=== PATIENT | female | born 1955 | race Caucasian/White ===

== ENCOUNTER → 2024-03-12 06:28 | Day surgery (SDC) | payer BC, MEDICARE, SELFPAY ==
[2024-03-08 08:31] VITALS: BMI 24.4
--- NOTE | 2024-03-11 06:32 | HPS.HSE ---
Family Physician
-
Family Physician: Cielo Jimenes
Chief Complaint
-
NA
History of Present Illness
68�year�old�G3�P3�0�0�3�white�female�menopausal�since�age�49�who�has�had�several�years�of�constipation.�Within�the�last�month
she�had�an�episode�where�she�was�really�unable�to�correct�her�constipation�and�reached�out�to�her�family�physician�and�requested
further�evaluation.�The�onset�of�this�has�been�gradual,�she�did�not�have�any�pain�but�she�describes�discomfort�3�out�of�10.�His�CT�of
abdomen�and�pelvis�was�ordered,�this�study�reveals�Suboptimal�study�without�intravenous�contrast.�Lobulated�mass�immediately
adjacent�to�the�posterior�aspect�of�the�uterus�measuring�up�to�8.2�cm�which�may�represent�an�exophytic�fibroid.�A�mass�arising
from�one�of�the�ovaries�cannot�be�entirely�excluded.�Complete�characterization�with�contrast�enhanced�pelvic�MRI�is�recommended.
An�MRI�was�subsequently�ordered,�detailed�results�are�at�the�bottom�of�this�note.�In�summary�it�revealedThe�left�ovary�is inseparable�from�a�7.9�cm�heterogenous�mass�which�shows�T1�intermediate�signal�intensity�and�demonstrates�enhancement�less
than�the�myometrium.� Past�medical�history�significant�for�hyperlipidemia,�osteopenia,�loss�of�height Past�surgical�history�none Past�gynecologic�history,�patient�is�normally�seen�by�,�she�has�not�been�seen�for�the�last�3�to�4�years.
Family�history�significant�for�son�with�myocardial�infarction�at�age�36,�hence�patient�has�been�seeing�cardiology�on�a�regular�basis
but�her�workup�has�been�negative.�Maternal�grandmother�had�breast�cancer�and��of�it�at�65.�She�had�a�7�year�tran�with�this disease Patient�works�as�an�administrative�clinical medical assistant,�she�is�
Social�history�significant�for�tobacco�use�as�a�teenager�but�quit,�she�does�not�drink�alcohol�and�does�not�use�drugs�or�marijuana.
Social�History Former�Smoker. Social�use�of�alcohol. Denies�any�illicit�drug�use. Occupational�Status:�Current:�administrative�clinical medical assistant. Marital�Status:�Patient�is� Gynecological�History
Age�at�Menarche�13�years.�Age�at�menopause:�49�years.�Patient�reports�2�pregnancies.�Her�age�at�first�full�term��was�22 years. No�history�of�hormone�replacement�therapy. Patient�Reported�Level�of�Pain Pain:�no�pain.
Medical History
Past Medical History
Past Medical History: Reports None
Past Surgical History: Reports None
Social History
Tobacco: Non-smoker
Family History
Family History: Not pertinent
Allergies / Home Medications
Allergies reflects when Allergies were last updated in [facility].
Home Medications with original date entered in [facility]
Allergy/Medication List:
Calcium�500�500�mg�(as�calcium�carbonate�1,250 mg)�chewable�tablet 02/29/2024 0 1�p.o.�q.�day
rosuvastatin�20�mg�tablet 02/29/2024 0 1�p.o.�q.�day
Vitamin�D3�50�mcg�(2,000�unit)�tablet 02/29/2024 0 1�p.o.�q.�day
Review of Systems
-
A 12 point ROS was completed and negative except as noted: Yes
Physical Exam
Vital Signs
Pelvic�Examination: External�normal�labia,�urethra,�anus. Vagina:�Normal�mucosa.� Cervix:�normal�appearance,�no�discharge.�pap�done Uterus:�normal�size.
Plus�she�will�go�to�[place]�adnexa:�No�pelvic�mass.�There�is�a�palpable�7�to�8�cm�mass�in�the�posterior�cul�de�sac,�it�is�mobile�and is�not�fixed.�There�is�no�cul�de�sac�nodularity� RVE�see�above,�no�luminlaI�her�masses�or�nodularity
General:�Well�developed,�well�nourished�patient.�In�no�acute�distress.
Neck:�No�thyromegaly.�No�cervical�lymphadenopathy.
Lungs:�Clear�to�auscultation.�Good�air�movement�bilaterally.
Cardiac:�Regular�rate.�Regular�rhythm.�No�murmurs�appreciated.
Right�Breast:�No�masses�or�dimpling.�No�nipple�discharge. Left�Breast:�No�masses�or�dimpling.�No�nipple�discharge. Abdomen:�Abdomen�is�soft.�Non�tender�to�palpation.�Non�distended.
Extremities:�No�edema. Hematologic/Lymphatic:�No�palpable�lymphadenopathy. Musculoskeletal:�Normal�range�of�motion.�Strength�and�Tone�are�normal.
Skin:Non�jaundiced.�No�petechia.�No�purpura. Neurologic:�Speech�is�fluent.�Normal�gait�and�station.�Cranial�nerves�intact.
Physical Exam
General: Well Developed, Well Nourished and No Apparent Distress
Laboratory Results
-
Imaging�Results Narrative�&�Impression HISTORY:�68�years�old?�Female?�Soft�tissue�mass,�pelvis,�US/xray�nondiagnostic? TECHNIQUE:�MRI�of�PELVIS�was�performed�on�1.5�Malorie�MRI�using�multiple�pulse�sequences�in�sagittal,�coronal�and�axial�planes.
Contrast�(Dotarem):�13�ml.�Comparison:�CT�dated�02/23/2024. FINDINGS: UTERUS:�3.6�x�3.5�x�5.5�cm,�anteverted,�no�anatomic�variants.. ENDOMETRIUM:�6�mm�(normal�premenopausal�<16�mm?�postmenopausal�<5�mm�bleeding,�<11�mm�asymptomatic).
MYOMETRIUM:�Junctional�zone:�Not�well�defined.�Myometrium�shows�no�fibroids. CERVIX:�Junctional�zone�shows�no�disruption.�No�mass�requiring�further�evaluation. VAGINA:�No�mass�or�cyst.
RIGHT�OVARY:�1�x�1.5�cm.�Parenchyma�is�within�normal�limits�showing�physiologic�follicles.�Fallopian�tube�is�within�normal�limits.
LEFT�OVARY:�The�left�ovary�is�inseparable�from�a�7.9�cm�heterogenous�mass�which�shows�T1�intermediate�signal�intensity�and demonstrates�enhancement�less�than�the�myometrium�following�the�administration�of�contrast.
PERITONEUM:�Small�amount�of�free�fluid. RETROPERITONEUM:�No�pelvic�adenopathy. BLADDER:�No�wall�thickening�or�mass.�Urethra�shows�no�diverticula. MSK:�No�marrow�replacing�lesion. OTHER:�Colonic�diverticulosis. IMPRESSION:
O�RADS�4�lesion�arising�from�the�left�ovary,�suspicious.�Recommend�CYTOLOGY LABORATORY MANAGER�evaluation�for�possible�resection. Communication:�Findings�conveyed�to�CIELO�ZAMBROTTA�via�[facility]iku�at�02/28/2024�8:32�AM.

CT�ABDOMEN�PELVIS�WO�CONTRAST�(ax/cor/sag�reformats).�Please�note�that�the�lack�of�intravenous�contrast limits�evaluation�of�the�abdominal�and�pelvic�organs.�PO�contrast:�Positive.�Ionizing�radiation�dose�reduced�via�iterative
reconstruction/FBP�blend�and�body�size�kV/mA�adjustment.�Utilization�of�standard�nomenclature�applied.� COMPARISON:�Abdominal�ultrasound�dated�01/31/2018.� FINDINGS: LOWER�CHEST:�No�lung�nodule,�consolidation,�or�pleural�effusion.
HEPATOBILIARY:�No�suspicious�mass.�No�calcified�gallstone�or�bile�duct�dilatation. PANCREAS:�No�mass,�parenchymal�calcification,�or�ductal�dilatation. SPLEEN:�Size�is�within�normal�limits.�No�suspicious�mass.
ADRENALS:�No�suspicious�nodule�or�hyperplasia. KIDNEYS:�Very�mild�left�sided�hydronephrosis�with�normal�caliber�left�ureter.�No�radiopaque�calculi.�No�suspect�renal�mass.�The right�kidney�is�normal.
BOWEL:�Bowel�shows�no�dilatation�or�wall�thickening.�Colonic�diverticulosis�without�diverticulitis.�Appendix�is�normal�(image�53� 62/602). RETRO/PERITONEUM:�Atherosclerosis�with�minimal�arterial�plaque.�No�aneurysm.�No�adenopathy. Larson,
Yue, 1955 Page 3 of 5 PELVIC�ORGANS:�There�is�bulky�isodense�mass�adjacent�to�the�posterior�aspect�of�the�uterus�which�is�best�seen�on�the�sagittal
reformatted�and�measures�approximately�8.2�x�6.5�cm�on�this�view�(image�92/601).�No�bladder�distention. MSK:�No�fracture.�Dextroscoliosis�of�the�thoracolumbar�spine.�No�lytic�or�blastic�lesions.�Minimal�spondylosis�of�lumbar�spine.�No
abdominal�wall�hernia. IMPRESSION: 1.�Suboptimal�study�without�intravenous�contrast.�Lobulated�mass�immediately�adjacent�to�the�posterior�aspect�of�the�uterus
measuring�up�to�8.2�cm�which�may�represent�an�exophytic�fibroid.�A�mass�arising�from�one�of�the�ovaries�cannot�be�entirely excluded.�Complete�characterization�with�contrast�enhanced�pelvic�MRI�is�recommended.
2.�Mild�left�sided�hydronephrosis�with�normal�caliber�left�ureter�which�may�reflect�an�underlying�component�of�a�congenital�UPJ
obstruction.�Of�note,�no�left�sided�hydronephrosis�was�seen�on�prior�ultrasound�from�2017.�Recommend�follow�up�renal�ultrasound to�assess�stability�or�resolution. ���������FINAL�REPORT��������� Dictated�By:�Pj Lobato�
Dictated�Date:�02/23/20240:12�ET Assigned�Physician:�Isrrael Ghosh�
Result Value (Previous) Units Range Lab
Comp. Metabolic Panel (14)�-FinalOrdered by:�Giovana Thakur
Glucose 98 mg/dL 70-99 [facility]
BUN 10 mg/dL 8-27 [facility]
Creat 0.88 mg/dL 0.57-1.00 [facility]
eGFR 71 mL/min/1.73 >59 [facility]
BUN Creat Ratio 11Low 12-28 [facility]
Sodium 147High mmol/L 134-144 [facility]
Potassium 4.3 mmol/L 3.5-5.2 [facility]
Chloride 105 mmol/L 96-106 [facility]
CO2 17Low mmol/L 20-29 [facility]
Calcium 9.1 mg/dL 8.7-10.3 [facility]
Total Protein 7.2 g/dL 6.0-8.5 [facility]
Albumin 4.9 g/dL 3.9-4.9 [facility]
Globulin 2.3 g/dL 1.5-4.5 [facility]
Total Bili 0.5 mg/dL 0.0-1.2 [facility]
Alk Phos 96 IU/L 44-121 [facility]
AST 27 IU/L 0-40 [facility]
ALT 16 IU/L 0-32 [facility]
PTT, Activated�-FinalOrdered by:�Giovana Thakur
aPTT 26 sec 24-33 [facility]
This�test�has�not�been�validated�for�monitoring�unfractionated�heparin
therapy.�aPTT-based�therapeutic�ranges�for�unfractionated�heparin
therapy�have�not�been�established.�For�general�guidelines�on
Heparin�monitoring,�refer�to�the�[facility]�Directory�of�Services.
TSH reflex to T4F�-FinalOrdered by:�M Shahin
TSH 4.440 uIU/mL 0.450-4.500 [facility]
Inhibin B�-FinalOrdered by:�Giovana Thakur
Inhibin B <7.0 pg/mL 0.0-16.9 [facility]
CEA�-FinalOrdered by:�Giovana Thakur
CEA 1.2 ng/mL 0.0-4.7 [facility]
��������������������������������������������Nonsmokers����������<3.9
��������������������������������������������Smokers�������������<5.6
��������������������������������������������������������������������.
���������������[facility]�Electrochemiluminescence�Immunoassay
���������������(ECLIA)
��������������������������������������������������������������������.
���������������Values�obtained�with�different�assay�methods�or�kits
���������������cannot�be�used�interchangeably.��Results�cannot�be
���������������interpreted�as�absolute�evidence�of�the�presence�or
���������������absence�of�malignant�disease.
Cancer Antigen (CA) 125�-FinalOrdered by:�Giovana Thakur
CA125 51.3High U/mL 0.0-38.1 [facility]
Impression/Plan
-
IMPRESSION:
I�have�personally�reviewed�the�images�from�radiology,�I�had�a�lengthy�discussion�with�the�patient�and�her�.�This�patient�has
a�solid�mass,�on�the�MRI�the�mass�appears�to�be�slightly�separate�from�the�uterus,�I�cannot�connected�to�the�uterine�structures
and�there�is�a�heterogeneity�within�the�mass,�but�it�could�be�a�stromal�tumor�of�the�ovary�versus�a�pedunculated�leiomyoma�with
some�degree�of�degeneration.�Differential�diagnosis�is�pedunculated�uterine�mass�versus�ovarian�mass�which�could�be�benign�or malignant.
Tumor�markers�for�common�epithelial�including�CA125�and�CEA�will�be�ordered,�in�addition�inhibin�and�LDH�will�be�ordered. I�recommend�surgical�treatment,�to�include�robotic�assisted�total�laparoscopic�hysterectomy,�bilateral�salpingo�oophorectomy,
intraoperative�frozen�section�of�the�left�ovarian�mass�will�be�done�and�if�there�is�malignancy�present�additional�staging�procedures
will�be�done�to�include�but�not�limited�to�pelvic�and�aortic�lymph�node�dissection,�peritoneal�biopsies,�omentectomy,�possible�bowel
resection�and�appendectomy.�Risk�of�surgery�including�infection�bleeding�injury�to�adjacent�organs,�DVT�pulmonary�embolism�and cardiovascular�complications�were�discussed�and�reviewed. Surgery�will�be�scheduled�[facility]�.
I�will�likely�do�the�procedure�at[facility]�based�on�OR�availability
PLAN:
[2024-03-12] VITALS (10 sets, daily range): BP systolic 107–153; BP diastolic 61–93; BMI 24.4
[2024-03-12] MEDS: TYLENOL 1000 MG PO (11:36)
[2024-03-12] MEDS: NEURONTIN 300 MG PO (11:36)
[2024-03-12] MEDS: HEPARIN 5000 UNITS SC (11:37)
[2024-03-12] MEDS: CELEBREX 200 MG PO (11:37)
--- NOTE | 2024-03-12 15:01 | OR.RPT ---
Operative Report
Operative Report
Date of procedure: March 12, 2024
Preoperative diagnosis: Pelvic mass, elevated CA125
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
Procedure:
Robotic assisted total laparoscopic hysterectomy, bilateral salpingo-oophorectomy, pelvic washing
Repair of right vaginal sulcus tear and left vaginal and perineal laceration
TAP block
Anesthesia: General Endotracheal intubation
Surgeon: Jeffrey Thakur MD
Assist: Yelena Duncan PA-C, Cesar GARCIA
EBL: 100 cc
complication: none
Procedure in detail: This patient was brought to the operating room and placed in supine position general anesthesia was administered she was intubated without any difficulty she was placed in lithotomy position using yellowfin stirrups, arms were
wrapped in foam and placed along the patient's side we attended to all joints and ensure that there was no excessive pressure on any of the upper extremity and lower extremity. She was prepped on the abdomen perineum and vagina, under sterile
conditions Palencia catheter was inserted for drainage of the bladder. Timeout procedure was carried out, she received Ancef and Flagyl for prophylaxis. She had received heparin subcutaneous injection prior to arrival to the operating room. The
cervix was grasped with single-tooth tenaculum cervical canal was dilated which sounded to 8 cm and was somewhat anteverted, uterine liquor department manager manipulator with 3.5 cm MEME ring was placed around the cervix and vaginal cuff insufflator was
insufflated. Attention was turned abdominally, Veress needle was inserted just below the left subcostal margin and CO2 gas was used to insufflate the abdomen up to pressure of 15 mmHg. Following this 8 mm incision was made 25 cm cephalad to
symphysis pubis an 8 mm XI robotic port was inserted in the abdomen, under direct visualization 8 mm robotic ports were placed in right and left upper quadrant and right and left lateral abdomen.
Tap block was performed with a mixture of 0.5% ropivacaine 30 cc admixed with 30 cc sterile saline and Decadron 10 mg injected 2 cm below lateral costal margin above the peritoneum at the level of transversus abdominis muscle and also mid lateral
abdomen.
Inspection of upper abdomen reveals right and left lobes of the liver to be within normal limits, there is no evidence of ascites. Right and left diaphragms are normal. Spleen and stomach and omentum is unremarkable. There are omental adhesions
along the left upper quadrant, these were sharply taken down, patient was placed in 28 degree Trendelenburg and the pelvis was examined, the left ovary was enlarged at approximately 10 cm with a multilobulated solid white stromal tumor suspected to
be fibroma clinically. The uterus was unremarkable peritoneal surfaces were normal in the pelvis and the right tube and ovary was atrophic and appropriate for age. Robotic system was docked, pelvic washings were collected and submitted for
cytology right and left round ligaments were sealed and divided anterior and posterior leaves of the broad ligament were dissected open pararectal and paravesical spaces were developed the course of the ureter was identified in the retroperitoneum,
a window was created between ureter and IP ligaments both IP ligaments were sealed and divided given the size of left IP ligament 0 Vicryl suture was placed for tying the pedicle in addition. The left tube and ovary was detached from the uterus and
left in the posterior cul-de-sac for future retrieval. Anterior cul-de-sac was developed and the bladder flap was taken below the level of the cervix. On the right side right IP ligament was sealed and divided the tube and ovary was mobilized and
left attached to the uterus and cervix. Uterine arteries were skeletonized and sealed and divided paracervical tissue and uterosacral ligaments were sealed and divided circumferential incision was made over the MEME ring until the specimen of uterus
and cervix was completely detached. Uterus and cervix with right tube and ovary was submitted to pathology as one of our specimen. Through the vagina a 10/15 mm endoscopic bag was introduced in the abdomen and the left tube and ovary was placed
within it. We then extracted this mass through the vagina and submitted it for frozen section. The vaginal apex was closed with 0 Vicryl suture ligature in a [id number] fashion incorporating uterosacral ligaments at both apices. V-Loc suture
was used to close the cuff starting from right to the left side and back to the right side in 2 layers. Good hemostasis was obtained throughout.
Frozen section of the left ovary reveals a benign stromal tumor or spindle cell neoplasm fibroma versus leiomyoma arising from left ovary. Given this no additional staging procedures were performed. I went ahead and turned my attention to the
vagina. There was a superficial sulcus tear as a result of extraction of the specimen along the right side of the vagina 3-0 Vicryl suture was used to close this in a running fashion starting from the apex down to the level of introitus. Good
hemostasis was present. Next we recognized that there was a second-degree laceration involving left distal vagina and perineal body 3-0 Vicryl suture ligature was used to close this in a running fashion and then we reapproximated the skin at the
level of the perineal body. I inspected the vagina and there was no additional foci of bleeding or lacerations and the cuff appeared to be fully closed.
As we did not have any port incisions above 8 mm there was no need for fascial closure. Pneumoperitoneum was released the robotic system was undocked ports were removed the skin at the level of all ports were closed with 4-0 Monocryl in a
subcuticular fashion. Dermabond skin glue was applied to all incisions. Palencia catheter was removed at the completion of the procedure. Patient was awakened extubated and returned back to recovery room stable awake and extubated condition. Counts
of laps instruments and needle was correct x 2. I was present and scrubbed for entire procedure as dictated above.
Disposition: To PACU, awake extubated stable
Specimen: Uterus and cervix with right tube and ovary, left tube and ovary, pelvic washings
== END ==
LOC: SDS 06:28
PROVIDERS: ATTENDING PHYSICIAN Obstetrics & Gynecology Gynecologic Oncology; FAMILY PHYSICIAN Internal Medicine
DX: D27.0 Benign neoplasm of right ovary (principal); N72 Inflammatory disease of cervix uteri; D25.9 Leiomyoma of uterus, unspecified; N83.311 Acquired atrophy of right ovary; S31.41XA Laceration without foreign body of vagina and vulva, initial encounter; X58.XXXA Exposure to other specified factors, initial encounter; K66.0 Peritoneal adhesions (postprocedural) (postinfection); R19.00 Intra-abdominal and pelvic swelling, mass and lump, unspecified site; R97.1 Elevated cancer antigen 125 [CA 125]
CPT/HCPCS: 58571; 88305; 88307; 88332; 86850; 86900; 86901; 88112; 88313; 88331; 88342